=== PATIENT | female | born 1995 | race Hispanic/Latino ===

== ENCOUNTER 2019-03-05 02:01 | Emergency (ER) | payer SELFPAY ==
[~2019-03-05] VITALS: Ht 167.6 cm; Wt 0.5 kg
[2019-03-05] MEDS ORDERED: IBUPROFEN 200 MG TAB PO STA (02:17)
[2019-03-05] MEDS ORDERED: ACETAMINOPHEN 325 MG TAB PO ONE (02:30)
--- NOTE | 2019-03-05 02:35 | Diagnostic Imaging Report ---
LEFT RING FINGER - 3 Images HISTORY: Crush injury, on machine COMPARISON: None available. FINDINGS: Bones: On the frontal view there is a subtle oblique lucency at the radial side of the distal metaphysis, which most closely resembles a vascular channel. However, on the oblique view there is a questionable subtle associated cortical step-off at this site versus enthesopathic change. No aggressive osseous lesion. Joints: Osseous alignment is within normal limits and the joint spaces are well-maintained. Soft tissues: Nonspecific soft tissue swelling of the distal finger. IMPRESSION: 1. Vascular channel versus subtle nondisplaced fracture involving the distal aspect of the proximal phalanx, correlate for acute focal point tenderness. 2. Mild distal soft tissue edema. Signed by: Dr. Luis Eduardo Bowen D.O., M.M.M. on 03/05/2019 2:32 AM
[2019-03-05] MEDS ORDERED: IBUPROFEN 200 MG TAB ONE (02:36)
[2019-03-05] MEDS ORDERED: ACETAMINOPHEN 325 MG TAB ONE (02:36)
== END 2019-03-05 03:00 | disposition home or self-care (01) ==
LOC: FSED 02:01
DX: S67.195A Crushing injury of left ring finger, initial encounter (principal); W23.1XXA Caught, crushed, jammed, or pinched between stationary objects, initial encounter; Y99.0 Civilian activity done for income or pay
CPT/HCPCS: 99283